=== PATIENT | male | born 1995 | race Caucasian/White ===

== ENCOUNTER → 2016-10-17 | Outpatient (CLI) | payer OTHER ==
--- NOTE | 2016-10-17 10:04 | US ---
EXAMINATION TYPE: US abdomen complete DATE OF EXAM: 10/17/2016 9:38 AM COMPARISON: NONE CLINICAL HISTORY: R10.9 abd pain, RUQ, RLQ pain wrapping into patients back. EXAM MEASUREMENTS: Liver Length: 15.2 cm Gallbladder Wall: 0.2 cm CBD: 0.2 cm Spleen: 13.9 cm Right Kidney: 12.9 x 5.4 x 5.9 cm Left Kidney: 12.7 x 5.8 x 5.6 cm Pancreas: wnl Liver: 5.1 x 4.1 x 4.8 cm anechoic, thick walled mass with solid internal component in right lobe of liver, does not appear vascular . The gamble appear irregular. Gallbladder: wnl Evidence for sonographic Landis's sign: no CBD: wnl Spleen: splenomegaly Right Kidney: wnl Left Kidney: wnl Upper IVC: wnl Abd Aorta: partially obscured by bowel gas, portions visualized wnl IMPRESSION: 1. 5 cm mass within the liver may be a necrotic mass. Abscess could be considered. Additional workup is recommended.
== END | disposition home or self-care (01) ==
LOC: RADUSMAIN 08:52
PROVIDERS: ATTEND Family Medicine
DX: R16.0 Hepatomegaly, not elsewhere classified (principal)
CPT/HCPCS: 76700